=== PATIENT | female | born 1945 | race Caucasian/White ===

== ENCOUNTER 2017-01-09 17:02 | Emergency (ER) | payer OTHER, MEDICARE | END 2017-01-09 18:25 | disposition home or self-care (01) | LOC: FER 17:02 | DX: S50.02XA Contusion of left elbow, initial encounter (principal); I10 Essential (primary) hypertension; Z79.899 Other long term (current) drug therapy; Z88.8 Allergy status to other drugs, medicaments and biological substances; W17.81XA Fall down embankment (hill), initial encounter; Y92.830 Public park as the place of occurrence of the external cause | CPT/HCPCS: 73060; 73080; 73090; 90471; 90702; 90715 ==